=== PATIENT | female | born 1995 | race Caucasian/White ===

== ENCOUNTER 2021-09-29 13:45 | Outpatient (CLI) | payer MEDICAID ==
[2021-09-29 14:43] VITALS: BP 102/76
--- NOTE | 2021-09-29 14:43 | SLEEP CARE CONSULTATION ---
Information from patient questionnaire entered by Madalyn Posey MA. I have reviewed and concur with the information entered by Madalyn Posey MA. This document represents the service I personally performed and the decisions made by , Lisbet Pompa ARNP. History of Present Illness Service Date and Time: 09/29/2021 1345 Reason for Visit: New patient Chief Complaint: reports: Insomnia, Unrefreshed sleep, Excessive daytime sleepiness, Observed pauses in breathing, Fatigue, Frequent awakenings at night Date of Onset: lifelong Usual bedtime: 1-4 am Time it takes to fall asleep: 30 minutes to 2 hours Snores at night: No Observed to quit breathing while asleep: Yes Sleeps alone due to snoring: No Number of times waking at night: 3-4 Reasons for waking at night: reports: Other (unknown) Toss, Turn, or Twitch while sleeping: Yes Recalls having dreams: No Usually gets out of bed at: 1000 am to noon Feels refreshed in the morning: No Morning headache: No Sleepy or fatigued during the day: Yes Ever fallen asleep while driving: No Takes day naps: Yes (often for a couple hours) Dreams during day naps: No Prior sleep studies: Yes Year and Where: [place] x 2 Additional HPI information: I had the pleasure of seeing AVTAR BEASLEY today regarding the possibility of her having a sleep disorder. Her current complaints are insomnia history, excessive daytime sleepiness, unrefreshed sleep, observed pauses in breathing during a sleep study, frequent night awakenings and fatigue. Patient has had 2 sleep studies in the past. She states she was borderline with an AHI around 3 and was diagnosed with sleep disruptive disorder years ago. She states she was never started on CPAP machine mainly because she could not afford it and her insurance would not pay for it. Patient states she has a few chronic conditions that she deals with daily. Her psychiatric doctor sent her here for a reevaluation due to her fatigue and sleepiness during the day. She tries not to take naps but this is difficult when she gets so tired. Her psych doctor would like her to limit this to 30 to 40 minutes that she often sleeps for 1 to 2 hours. She can take hours to fall asleep at night and then once asleep will wake up several times a night. - Parasomnia Symptoms Ever been unable to move upon waking from sleep: No Walks in sleep: No Talks in sleep: No Ever acted out dreams in sleep: No Ever felt weak in the knees when startled or emotional: Yes (stumbled but did not fall/ has POTS which causes fainting) Bothered by creepy, crawly, restless sensations in legs: Yes (RLS) Problems with memory or concentration: Yes Subjective Initial [place] Sleepiness Scale score: 12 (2020) Past Medical History Past Medical History: reports: Anxiety, Asthma, Depression, Attention deficit, Other (Darby-Danlos syndromes (EDS), Postural orthostatic tachycardia syndrome (POTS), Gastroparesis) Social History The patient's occupation is a NONE. Patient is and lives in [place]. Have you smoked in the past 12 months: Yes Cigarettes per day (20/pack): 2 (1-2 cigs per day) Years of smokin Smoking Pack Years: 0.5 Alcohol use: No Caffeine use: Yes Caffeine amount and frequency: 1-2x weekly Family History Family Hx Sleep Apnea: Mother: Snoring, Sleep apnea - Treated, Father: Snoring, Sleep apnea - Untreated Allergies and Home Medications Drug allergies reviewed: Yes (Reglan, Tape adhesive, Silicaglue) Allergy and home medication list: Hydroxyzine prn - interstitial cystitis Adderall, prn - just added Lactated Ringers IV infusion 4 times a week Zofran, IV infusion 2 times a day, prn Elmiron - interstitial cystitis, prin Ambien, prn Xanax, prn [ Patient has a central line in place. She also has a Gtube and Jtube for gastroparesis in place. ] Review of Systems Cardiovascular: reports: irregular heart rate or pulse Gastrointestinal: reports: vomitting, other (feeding tube) Neurological: reports: fainting or unconsciousness Psychiatric: reports: Attention Deficit Hyperactivity, anxiety, depression, other (POTS) Ear/Nose/Throat: reports: wisdom teeth removed. denies: tonsillectomy Musculoskeletal: reports: other (EDS c+D) Immunologic: reports: rash, itching, allergies to food or environment Physical Exam Blood Pressure: 102/76 (right) Cuff size: wrist Heart Rate: 112 O2 Saturation: 95 Height: 5 ft 5 in Weight: 110 lb Body Mass Index: 18.3 BMI Classification: Underweight Neck circumference: 12.5 (inches) Mouth and throat: narrow oropharynx Soft palate: long Hard palate: normal Uvula: normal Uvula visualization: 25% Mallampati Class III Tongue: enlarged in size with teeth diaz on lateral edges Tonsils: small Heart: regular rate and rhythm (tachy) Lungs: clear bilaterally Impression and Plan 1. Suspected Obstructive Sleep Apnea-Hypopnea Syndrome, as suggested by a history of observed cessation of breath while asleep, frequent awakening during the night, unrefreshed sleep, cognitive impairment, and excessive daytime sleepiness. I recommend proceeding to polysomnography to confirm the diagnosis and to assess severity. If the patient has significant sleep disordered breath ing, a manual CPAP titration study will also be performed to find the optimal treatment pressure. I informed the patient of what the sleep studies involve and after some discussion, obtained agreement to proceed. The pathophysiology of obstructive sleep apnea-hypopnea syndrome was discussed with the patient and health risks of cardiovascular and cerebrovascular disease if not treated. Risks of drowsy driving discussed in detail and patient advised to avoid long distance driving and to pulley worker at the first sign of drowsiness. Patient agreed to plan. * Schedule polysomnography +- manual CPAP titration study and return in 1-2 weeks after the study to discuss result and initiate therapy. * Avoid long distance driving or driving when feeling sleepy. * Avoid sedative and muscle relaxant around bedtime. * Maintain a healthy weight. * Review instructions provided by trained office staff on how to prepare for the sleep study. * Return for follow-up after sleep study completed. Visit Type: In Office Time Spent with Patient (minutes): 38 Provider Statement: I spent 100% of the Face to Face Visit with the patient with greater than 50% spent counseling the patient and coordination of care.
== END 2021-09-29 13:46 | disposition home or self-care (01) ==
LOC: SC 13:45
PROVIDERS: ATTEND Nurse Practitioner Family
DX: G47.10 Hypersomnia, unspecified (principal); G47.8 Other sleep disorders; R41.89 Other symptoms and signs involving cognitive functions and awareness; R06.81 Apnea, not elsewhere classified
CPT/HCPCS: 99203; 99212

== ENCOUNTER 2021-10-31 14:54 | Outpatient (CLI) | payer MEDICAID | END 2021-10-31 14:55 | disposition home or self-care (01) | LOC: SC 14:54 | PROVIDERS: ATTEND Nurse Practitioner Family | DX: G47.10 Hypersomnia, unspecified (principal); R53.83 Other fatigue; G47.8 Other sleep disorders; G47.00 Insomnia, unspecified; R06.81 Apnea, not elsewhere classified; R09.02 Hypoxemia; F32.A Depression, unspecified; F81.9 Developmental disorder of scholastic skills, unspecified | CPT/HCPCS: 95806 ==

== ENCOUNTER 2021-11-17 09:43 | Outpatient (CLI) | payer MEDICAID ==
--- NOTE | 2021-11-17 09:56 | SLEEP CARE CONSULTATION ---
Information from patient questionnaire entered by Madalyn Posey MA. I have reviewed and concur with the information entered by Madalyn Posey MA. This document represents the service I personally performed and the decisions made by Peña asencio Caren J, ARNP. History of Present Illness Service Date and Time: 11/17/2021 0942 Initial [place] Sleepiness Scale score: 12 (2020) Current [place] Sleepiness Scale score: 12 Additional HPI information: AVTAR BEASLEY returns via video Telehealth visit for follow up and results of the recently performed home sleep study. The patient was informed of the following findings: No significant sleep disordered breathing with an average AHI of 1.2 and willie oxygen saturation of 89%. I explained the pathophysiology behind obstructive sleep apnea. Patient does not have sleep apnea and was advised how weight gain could increase the risk of developing sleep apnea in the future. Patient counseled not drink alcohol less than 4 hours before bedtime as it can increase snoring and apnea. Patient was cautioned about risks of drowsy driving until sleepiness symptoms resolve. Patient denies drowsy driving. Sleep Study - Results Prior sleep studies: Yes Year and Where: [place] x 2 Polysomnography/Home Sleep Study results: Physician Impression: The quality of the study is good. The length of the study is adequate (> 240 minutes). Please also see the tabulated and graphic data. 1. No significant sleep disordered breathing, with an AHI of 1.2/hr and willie SaO2 of 89%. During the study, the patient had 6 apneas (6 obstructive, 0 central, 0 mixed) and 3 hypopneas. The longest episode lasted 40.5 seconds. The patient slept mostly supine (supine AHI was 1.2 and non-supine, 1.21). 2. Hypoxemia (ICD-10 R09.02), minimal, with the lowest oxygen saturation of 89 % and 0.1 minutes with SaO2 under 90%. Baseline oxygen saturation was normal (Average oxygen saturation was 96%). Allergies and Home Medications Home medication list reviewed: Yes (added iv benadryl 3 x a week) Review of Systems Review of systems same as previous: Yes (no changes) Physical Exam Vital signs obtained and entered by: Telehealth visit to reduce exposure during Covid pandemic Height: 5 ft 5 in Impression and Plan 1. Suspected Obstructive Sleep Apnea-Hypopnea Syndrome, as suggested by a history of observed cessation of breath while asleep, frequent awakening during the night, unrefreshed sleep, and excessive daytime sleepiness. Patient HST does not show sleep disordered breathing but she was borderline sleep apnea in the past and we may not have been able to pick this up with the HST. I recommend proceeding to polysomnography to confirm the diagnosis and to assess severity. I obtained agreement to proceed. The pathophysiology of obstructive sleep apnea- hypopnea syndrome was discussed with the patient and health risks of cardiovascular and cerebrovascular disease if not treated. Risks of drowsy driving discussed in detail and patient advised to avoid long distance driving and to brisket puller at the first sign of drowsiness. Patient agreed to plan. * Schedule polysomnography. * Avoid long distance driving or driving when feeling sleepy. * Avoid alcohol, sedative and muscle relaxant around bedtime. * Maintain a healthy weight. * Review instructions provided by trained office staff on how to prepare for the sleep study. * Return for follow-up after sleep study completed. Counseling Topics: Weight control Visit Type: Telehealth Video Video Type: VSee Patient Location: Home Location of Provider: Office Patient agrees and consents to this telehealth visit type: Yes Patient agrees to have their insurance billed: Yes Time Spent with Patient (minutes): 20 Provider Statement: I spent 100% of the Telehealth Video Call with the patient with greater than 50% spent counseling the patient and coordination of care.
== END 2021-11-17 09:44 | disposition home or self-care (01) ==
LOC: SC 09:43
PROVIDERS: ATTEND Nurse Practitioner Family
DX: G47.10 Hypersomnia, unspecified (principal); G47.8 Other sleep disorders; R06.81 Apnea, not elsewhere classified

== ENCOUNTER 2021-12-06 19:42 | Outpatient (CLI) | payer MEDICAID | END 2021-12-06 19:43 | disposition home or self-care (01) | LOC: SC 19:42 | PROVIDERS: ATTEND Nurse Practitioner Family | DX: G47.10 Hypersomnia, unspecified (principal); G47.8 Other sleep disorders; R06.81 Apnea, not elsewhere classified; F81.9 Developmental disorder of scholastic skills, unspecified | CPT/HCPCS: 95810 ==

== ENCOUNTER 2021-12-21 15:32 | Outpatient (CLI) | payer MEDICAID ==
--- NOTE | 2021-12-21 15:45 | SLEEP CARE CONSULTATION ---
Information from patient questionnaire entered by Madalyn Posey MA. I have reviewed and concur with the information entered by Madalyn Posey MA. This document represents the service I personally performed and the decisions made by Peña asencio Caren J, ARNP. History of Present Illness Service Date and Time: 12/21/2021 1540 Initial [place] Sleepiness Scale score: 12 (2020) Current [place] Sleepiness Scale score: 12 Additional HPI information: AVTAR BEASLEY returns via video Telehealth visit for follow up and results of the recently performed polysomnography. The patient was informed of the following findings: No significant sleep disordered breathing with an average AHI of 3.2 and willie oxygen saturation of 91%. I explained the pathophysiology behind obstructive sleep apnea. Patient does not have sleep apnea and was advised how weight gain could increase the risk of developing sleep apnea in the future. Patient has light snoring. Snoring can be reduced by weight loss. Weight loss is best achieved with diet consult. Patient instructed to contact PCP for referral. Snoring can also be treated with an oral appliance from a dentist. Advised to check insurance coverage. In addition, an ENT evaluation can be do to see if other treatment is indicated. Patient does not drink alcohol. Patient was cautioned about risks of drowsy driving until sleepiness symptoms resolve. Patient denies drowsy driving. Sleep Study - Results Type of Sleep Study: Polysomnography Prior sleep studies: Yes Year and Where: [place] x 2 Polysomnography/Home Sleep Study results: IMPRESSION: The quality of the study is good. The patient had normal sleep efficiency. The sleep architecture was normal as well. Respiratory monitoring showed no significant sleep disordered breathing (AHI = 3.2) or hypoxia (willie oxygen saturation of 91%). The patient slept adequately in supine position (supine AHI = 3.5; nonsupine = 1.73). Snore was infrequent and light in intensity. There was no significant periodic leg movement of sleep. Cardiac rhythm was normal sinus rhythm without significant arrhythmia. No abnormal behavior (parasomnia) observed during the night. Allergies and Home Medications Home medication list reviewed: Yes (no changes) Review of Systems Review of systems same as previous: No (feeding tube exchanged yesterday) Physical Exam Vital signs obtained and entered by: telehealth visit to reduce exposure during covid pandemic Height: 5 ft 5 in Impression and Plan 1. Snoring but no significant sleep disordered breathing. An oral appliance can also be used for snoring. This would require a dental consultation. Patient cautioned not to use other online appliances as can cause bite issues. A list of accredited [facility]ists [facility] and one local dentist who makes oral appliances is available in the office. Patient is advised to check if insurance will cover. An ENT consult can also be helpful to determine if any other treatment is an option. 2. Insomnia, unspecified. Insomnia is generally caused by an irregular sleep schedule, spending too much time in bed, napping, caffeine, electronics, lack of a relaxing bedtime ritual and clock watching. Other factors can include anxiety/depression, pain, or medications. Patient is working with a provider on her insomnia and she will follow up with them. * Maintain a healthy weight * The patient is cautioned about driving until sleepiness is completely resolved. * Return as needed for follow up. Counseling Topics: Weight control Visit Type: Telehealth Video Video Type: ee Location of Provider: Office Patient agrees and consents to this telehealth visit type: Yes Patient agrees to have their insurance billed: Yes Time Spent with Patient (minutes): 10 Provider Statement: I spent 100% of the Telehealth Video Call with the patient with greater than 50% spent counseling the patient and coordination of care.
== END 2021-12-21 15:33 | disposition home or self-care (01) ==
LOC: SC 15:32
PROVIDERS: ATTEND Nurse Practitioner Family
DX: R06.83 Snoring (principal); G47.00 Insomnia, unspecified

== ENCOUNTER 2021-12-29 10:45 | Outpatient (CLI) | payer MEDICAID ==
[2021-12-29 11:06] LABS: CALCIUM 9.3 mg/dL (8.5-10.3); CREATININE 0.6 mg/dL (0.4-1.0); POTASSIUM 3.8 mmol/L (3.5-5.0)
== END 2021-12-29 10:46 | disposition home or self-care (01) ==
LOC: LAB.R 10:45
PROVIDERS: ATTEND Family Medicine
DX: I95.1 Orthostatic hypotension (principal); K31.84 Gastroparesis
CPT/HCPCS: 80048

== ENCOUNTER 2023-01-22 14:38 | Outpatient (CLI) | payer MEDICARE, MEDICAID | END 2023-01-22 14:39 | disposition left against medical advice (07) | LOC: EMS 14:38 | DX: Z04.1 Encounter for examination and observation following transport accident (principal) ==